=== PATIENT | male | born 1985 | race African-American/Black ===

== ENCOUNTER 2019-03-26 08:56 | Emergency (ER) | payer MEDICAID ==
[~2019-03-26] VITALS: Ht 185.4 cm; Wt 74.8 kg
[2019-03-26 09:01] VITALS: BP_SYST 108
--- NOTE | 2019-03-26 09:03 | NUR ---
Patient to ER bed 07 to gown for evaluation. Side rails up.
--- NOTE | 2019-03-26 09:15 | NUR ---
JESSE Smith at bedside examining patient.
--- NOTE | 2019-03-26 09:17 | NUR ---
Patient came into the ER due to coughing for 3 x days. Patient denies throat pain but does admit that when he coughs he feels shortness of breath. spO2 at 97% and patient not presenting any signs of acute respiratory distress. Lung le sound congestion/rhonci. Patient denies any history of asthma. Patient is afebrile.
[2019-03-26 10:07] VITALS: BP_SYST 112
--- NOTE | 2019-03-26 10:08 | NUR ---
Patient given written and verbal discharge instructions and verbalizes understanding. ER MD discussed with patient the results and treatment provided. Patient in stable condition. ID arm band removed. Rx of Azythromycin and Albuterol given. Patient educated on pain management and to follow up with PMD. Pain Scale 0/10. Opportunity for questions provided and answered. Medication side effect fact sheet provided.
== END 2019-03-26 10:07 | disposition home or self-care (01) ==
LOC: SED 08:56
DX: J40 Bronchitis, not specified as acute or chronic (principal)
CPT/HCPCS: 71045; 99283

== ENCOUNTER 2019-03-29 21:27 | Emergency (ER) | payer MEDICAID ==
[~2019-03-29] VITALS: Ht 185.4 cm; Wt 74.8 kg
[2019-03-29 21:41] VITALS: BP_SYST 112
[2019-03-30 01:05] VITALS: BP_SYST 118
== END 2019-03-30 01:05 | disposition home or self-care (01) ==
LOC: SED 21:27
DX: S63.91XA Sprain of unspecified part of right wrist and hand, initial encounter (principal); X58.XXXA Exposure to other specified factors, initial encounter; Y93.89 Activity, other specified; Y92.89 Other specified places as the place of occurrence of the external cause; Y99.8 Other external cause status
CPT/HCPCS: 99283